=== PATIENT | female | born 1945 | race American Indian/Alaskan Native ===

== ENCOUNTER 2017-05-06 18:11 | Emergency (ER) | payer MEDICARE ==
[2017-05-06 18:20] VITALS: BP 132/81
[2017-05-06] MEDS ORDERED: PROVENTIL IH ONE (19:27)
[2017-05-06] MEDS ORDERED: ATROVENT IH ONE (19:28)
--- NOTE | 2017-05-06 19:45 | Emergency Department Report ---
HPI - General Chief Complaint: Upper Respiratory Infection Time Seen by Provider: 05/06/17 19:41 - HPI HPI: Patient with cough, congestion, wheezing, for the past 2 weeks worse today. Patient was a history of COPD he has been compliant with medication patient has had similar symptoms in the past where she had bronchitis. She said it was helped with the albuterol nebulizers, and an antibiotic. No chest pain no shortness of breath. ED Past Medical Hx - Past Medical History Previous Medical History?: Yes Hx COPD: Yes - Surgical History Past Surgical History?: No - Medications Home Medications: Home Medications Medication Instructions Recorded Confirmed Last Taken Type ALBUTEROL Inhaler [Proair] 2 puff IH QID PRN 05/06/17 05/06/17 Unknown History ALBUTEROL NEB's [Proventil 0.083% 2.5 mg IH TID 15 Days #1 pkg NS 05/06/17 Unknown Rx NEBS] Levofloxacin [Levaquin] 750 mg PO QDAY #7 tablet 05/06/17 Unknown Rx Prednisone [predniSONE 5 mg (6-Day 5 mg PO .TAPER #1 tab.ds.pk 05/06/17 Unknown Rx Pack, 21 Tabs)] ED Review of Systems ROS: Stated complaint: FLU Other details as noted in HPI Comment: All other systems reviewed and negative ENT: throat pain Respiratory: cough, wheezing Physical Exam - Physical Exam Vital Signs: Vital Signs 05/06/17 18:15 Temperature 98.4 F Pulse Rate 97 H Respiratory 18 Rate Blood Pressure 132/81 O2 Sat by Pulse 95 Oximetry Physical Exam: Gen. alert and oriented 3 in no distress Head atraumatic normocephalic Eyes PERR LA EOMI Chest regular rate and rhythm normal S1-S2 lungs mild expiratory wheezing Abdomen soft nondistended Back no point tenderness paravertebral tenderness Neuro no focal deficit. Psych normal mood. ED Course Vital Signs 05/06/17 18:15 Temperature 98.4 F Pulse Rate 97 H Respiratory 18 Rate Blood Pressure 132/81 O2 Sat by Pulse 95 Oximetry ED Medical Decision Making - Lab Data Result diagrams: 05/06/17 19:42 05/06/17 19:42 Critical care attestation.: If time is entered above; I have spent that time in minutes in the direct care of this critically ill patient, excluding procedure time. ED Disposition Clinical Impression: Acute bronchitis Qualifiers: Bronchitis organism: other organism Qualified Code(s): J20.8 - Acute bronchitis due to other specified organisms Disposition: DC-01 TO HOME OR SELFCARE Is pt being admited?: No Does the pt Need Aspirin: No Condition: Stable Instructions: Acute Bronchitis (ED) Prescriptions: ALBUTEROL NEB's [Proventil 0.083% NEBS] 2.5 mg IH TID 15 Days #1 pkg NS Levofloxacin [Levaquin] 750 mg PO QDAY #7 tablet Prednisone [predniSONE 5 mg (6-Day Pack, 21 Tabs)] 5 mg PO .TAPER #1 tab.ds.pk
[2017-05-06 19:54] LABS: Hematocrit 40.1 % (30.3-42.9); Hemoglobin 12.9 gm/dl (10.1-14.3); Mean Corpuscular HGB Conc 32 % (30-34); Mean Corpuscular Hemoglobin 30 pg (28-32); Mean Corpuscular Volume 94 fl (79-97); Platelet Count 160 K/mm3 (140-440); Red Blood Count 4.28 M/mm3 (3.65-5.03); Red Cell Distribution Width 14.4 % (13.2-15.2)
[2017-05-06 20:15] LABS: Alanine Aminotransferase 45 units/L (7-56); Albumin 3.3 g/dL (3.9-5); BUN/Creatinine Ratio 12; Blood Urea Nitrogen 7 mg/dL (7-17); Calcium 9.2 mg/dL (8.4-10.2); Hemolysis Index 9
[2017-05-06] MEDS ORDERED: ROBITUSSIN AC PO ONE (20:30)
[2017-05-06 21:09] LABS: Anisocytosis 1+; Basophils % (Manual) 0 % (0.0-1.8); Platelet Estimate Consistent w Auto; Total Cells Counted 100
== END 2017-05-06 20:28 | disposition home or self-care (01) ==
LOC: ED 18:11
DX: J20.8 Acute bronchitis due to other specified organisms (principal); J44.0 Chronic obstructive pulmonary disease with (acute) lower respiratory infection
CPT/HCPCS: 36415; 80053; 85007; 85025

== ENCOUNTER 2017-05-15 16:33 | Emergency (ER) | payer MEDICARE ==
[2017-05-15] MEDS ORDERED: NORCO 5/325 PO ONE (19:51)
--- NOTE | 2017-05-15 19:55 | Emergency Department Report ---
HPI - General Chief Complaint: Back Pain/Injury Time Seen by Provider: 05/15/17 19:17 - HPI HPI: Patient is a 72-year-old female who presents to ED complaining of lower back pain for the past 3 days. Patient states pain is fell on her lower bilateral back. Patient states pain also goes down her legs. Patient states that out of the past 3 days today's visit are worse. Patient states she did not fall, hit her back or have any trauma. Patient states she deserves to a lot physical activities at home that is out of the ordinary. Patient states her sister move certain ways or sit in certain ways. She was seen here 2-3 days ago and diagnosed with bronchitis but was not given any pain medications she is still coughing. She denies fever assess chills/abdominal pain / chest pain/shortness of breath/calf tenderness ED Past Medical Hx - Past Medical History Hx COPD: Yes - Surgical History Additional Surgical History: brain aneurysm - Social History Smoking Status: Former Smoker Substance Use Type: None - Medications Home Medications: Home Medications Medication Instructions Recorded Confirmed Last Taken Type ALBUTEROL Inhaler [Proair] 2 puff IH QID PRN 05/06/17 05/06/17 Unknown History ALBUTEROL NEB's [Proventil 0.083% 2.5 mg IH TID 15 Days #1 pkg NS 05/06/17 Unknown Rx NEBS] Levofloxacin [Levaquin] 750 mg PO QDAY #7 tablet 05/06/17 Unknown Rx Prednisone [predniSONE 5 mg (6-Day 5 mg PO .TAPER #1 tab.ds.pk 05/06/17 Unknown Rx Pack, 21 Tabs)] Acetamin/Codeine 120-12Mg/5 ml 5 ml PO TID PRN #60 ml 05/15/17 Unknown Rx [Tylenol/Codeine] Benzonatate [Tessalon Perles] 100 mg PO Q8HR #24 capsule 05/15/[address] [Rodrigo Diaz] 75 mg PO BID #40 tablet 05/15/17 Unknown Rx traMADol [Ultram] 50 mg PO Q6HR PRN #20 tablet 05/15/17 Unknown Rx ED Review of Systems ROS: Stated complaint: LOWER BACK PAIN Other details as noted in HPI Physical Exam - Physical Exam Vital Signs: Vital Signs 05/15/17 16:51 Temperature 98.7 F Pulse Rate 86 Respiratory 15 Rate Blood Pressure 122/68 O2 Sat by Pulse 98 Oximetry Physical Exam: GENERAL: Alert and oriented x3, no apparent distress,in hospital wheel chair, atraumatic. Able to get up and walk HEAD: Head is normocephalic and a-traumatic. NECK: Supple. Non edematous, No carotid bruits. No lymphadenopathy or thyromegaly. No C-spine tenderness LUNGS: Symetrical with respiration, No wheezing, no rales or crackles, CTAB. HEART: S1, S2 present, regular rate and rhythm without murmur, no rubs, no gallops. Non tender to palpation BACK: Full range of motion, no spinal tenderness, nontender to palpation. EXTREMITIES/MUSCULOSKELETAL: No cyanosis, clubbing, rash, lesions or edema. Full ROM bilaterally. UE/LE Pulses 2+ bilaterally. LE and UE 5+ strength bilaterally, straight leg raise negative bilaterally, Homans sign negative, no calf tenderness bilaterally NEUROLOGIC: The patient is cooperative with no focal neurologic deficits. . Normal speech. Normal sensation in bilateral upper and lower extremities, No loss of sensation, SKIN: Warm and dry, No lesions, No ulceration or induration present. normal exam ED Course Vital Signs 05/15/17 16:51 Temperature 98.7 F Pulse Rate 86 Respiratory 15 Rate Blood Pressure 122/68 O2 Sat by Pulse 98 Oximetry ED Medical Decision Making - Medical Decision Making 72-year-old female presents to ED with myalgia ED course: Patient received 1 tablet of Pomerene 5/325 Vital signs are normal patient is in no acute distress Discussed with patient follow-up with primary care physician. Also discussed the patient to follow-up with orthopedic as I will refer her. Neurologist referral also given for management of scaitica Discussed the patient and take medications as prescribed. Patient has no neurological deficit. Patient is alert and oriented 3 and understands all instructions given. Discussed drowsiness effect of Ultram makes her drowsy and not to operate machinery while taking this medication Critical care attestation.: If time is entered above; I have spent that time in minutes in the direct care of this critically ill patient, excluding procedure time. ED Disposition Clinical Impression: Lumbar pain with radiation down both legs, Strain of muscle, fascia and tendon of lower back, initial encounter Disposition: TO HOME OR SELFCARE Is pt being admited?: No Does the pt Need Aspirin: No Condition: Stable Instructions: Low Back Strain (ED), Lumbar Radiculopathy (ED), Chronic Back Pain (ED) Additional Instructions: Make sure to follow up with the primary care physician and orthopedic as discussed. Take all your medications as you've been prescribed. If you have any worsening symptoms or develop new symptoms please return to ED immediately. Prescriptions: Acetamin/Codeine 120-12Mg/5 ml [Tylenol/Codeine] 5 ml PO TID PRN #60 ml PRN Reason: Pain Benzonatate [Tessalon Perles] 100 mg PO Q8HR #[address] [Voltaren Dr] 75 mg PO BID #40 tablet traMADol [Ultram] 50 mg PO Q6HR PRN #20 tablet PRN Reason: Pain Referrals: ALEJANDRO GIBSON MD [Primary Care Provider] - 3-5 Days TYLER TELLEZ MD [Staff Physician] - 3-5 Days ELAINE CALZADA MD [Staff Physician] - 3-5 Days Forms: Accompanied Note Time of Disposition: 20:02
[2017-05-15 21:32] VITALS: BP 123/63
== END 2017-05-15 20:24 | disposition home or self-care (01) ==
LOC: ED 16:33
DX: S39.012A Strain of muscle, fascia and tendon of lower back, initial encounter (principal); J44.9 Chronic obstructive pulmonary disease, unspecified; Z87.891 Personal history of nicotine dependence; X58.XXXA Exposure to other specified factors, initial encounter; Y93.89 Activity, other specified; Y99.8 Other external cause status; Y92.89 Other specified places as the place of occurrence of the external cause
CPT/HCPCS: 99282

== ENCOUNTER 2017-07-30 12:21 | Outpatient (CLI) | payer MEDICARE ==
--- NOTE | 2017-07-30 13:28 | XRay Report ---
Lumbar spine 4 views: History: Low back pain/age related osteoporosis. Findings: There is osteopenia. Normal height of vertebral bodies and intervertebral disc. Sclerotic articular surfaces with peripheral osteophyte. Calcified abdominal aorta without aneurysm. No fracture. Impression: Early degenerative changes spine.
--- NOTE | 2017-07-30 13:30 | XRay Report ---
Bilateral ankle: History: Age related osteoporosis without aren't pathological fracture. Findings: There is generalized osteopenia. Soft tissue swelling bilaterally at the ankle. No fracture dislocation or periosteal or lytic lesion. Early arthritic changes in the ankle cannot be excluded. Impression: There is osteopenia with soft tissue swelling. Early arthritic changes of the ankles cannot be excluded.
== END 2017-07-30 12:22 | disposition home or self-care (01) ==
LOC: XRAY 12:21
PROVIDERS: ATTEND Nurse Practitioner
DX: M19.072 Primary osteoarthritis, left ankle and foot (principal); M19.071 Primary osteoarthritis, right ankle and foot; M47.896 Other spondylosis, lumbar region; M81.0 Age-related osteoporosis without current pathological fracture; M85.88 Other specified disorders of bone density and structure, other site; I70.0 Atherosclerosis of aorta; Z87.891 Personal history of nicotine dependence
CPT/HCPCS: 72110

== ENCOUNTER 2017-09-07 11:35 | Outpatient (CLI) | payer MEDICARE ==
[2017-09-07 12:17] LABS: Blood Urea Nitrogen 15 mg/dL (7-17)
--- NOTE | 2017-09-07 13:24 | Cat Scan Report ---
CT ABDOMEN AND PELVIS WITH CONTRAST INDICATION: Abnormal results of liver function studies. COMPARISON: None similar. FINDINGS: Abdomen and pelvis CT performed following intravenous administration of 100 cc of Omnipaque 300. LUNG BASES: Slight left basilar scarring and approximately 2.3 cm pneumatocele as on axial image 14, series 2. Few left lower lobe calcified granulomas, the largest 0.8 cm, axial image 13. Nonspecific distal esophageal wall prominence/thickening, not excluded for gastroesophageal reflux and/or hiatal hernia, amongst others. ABDOMEN: Numerous splenic and hepatic calcified granulomas. As on axial series 2, images 35-48, an approximately 2.5 x 2.7 cm left paramidline hypodense left hepatic lobe hypodense lesion noted anteriorly, not clearly a simple cyst. Though precontrast images not available, its portal venous and delayed phase attenuations are 58 and 48 HU respectively. Another subtle indeterminate 0.7 cm left hepatic lobe hypodensity also questioned more superiorly as on axial image 29. A 0.5 cm left hepatic lobe hypodensity anteriorly also seen slightly right paramidline as on axial image 47, series 2. Patent veins. Cirrhotic hepatic contour. Slight central intrahepatic biliary prominence noted with CBD caliber at the nimisha hepatis approximately 0.9 cm, axial image 52. Multiple, at least 3 peripherally calcified gallstones noted, the largest 2.3 cm, axial image 69. Pancreas, adrenals, IVC and the kidneys within normal limits. Approximately 1.2 cm left lower renal cortical cyst, axial image 64, series 2. Nonaneurysmal abdominal aorta with few atherosclerotic calcifications. No effusion or size significant adenopathy. Nonopacified GI tract valuation limited, though grossly nonobstructive. Normal appendix. Mild colonic stool. PELVIS: Approximately 1.7 cm partly calcified fibroid, as image 131. Urinary bladder and the rectosigmoid within normal limits. No free fluid or significant adenopathy. Demineralized bones with few degenerative changes along the spine and greatest mid to lower lumbar facet arthropathy with few small erosions. Mild hip degenerative changes also noted. CONCLUSION: 1. Approximately 2.7 cm left hepatic lobe mass(es) lesion that is primarily concerning for hepatocellular carcinoma in light of provided history in this patient with underlying cirrhosis. Liver mass protocol MRI with contrast would help further characterize. Direct comparison with similar prior imaging would also be very helpful, if available. This lesion would also be amenable to percutaneous CT guided biopsy, if warranted. 2. Various other findings as cholelithiasis, small left renal cyst, small fibroid and old healed granulomatous disease, amongst others, as described. Thank you for the opportunity to participate in this patient's care.
== END 2017-09-07 11:36 | disposition home or self-care (01) ==
LOC: CT 11:35
PROVIDERS: ATTEND Internal Medicine
DX: N28.1 Cyst of kidney, acquired (principal); K76.89 Other specified diseases of liver; M47.896 Other spondylosis, lumbar region; K80.20 Calculus of gallbladder without cholecystitis without obstruction; D25.9 Leiomyoma of uterus, unspecified; M16.9 Osteoarthritis of hip, unspecified; J44.9 Chronic obstructive pulmonary disease, unspecified; Z87.891 Personal history of nicotine dependence
CPT/HCPCS: 36415; 74177; 82565; 84520; Q9967

== ENCOUNTER 2017-10-08 16:34 | Outpatient (CLI) | payer MEDICARE ==
[2017-10-08 17:09] LABS: Blood Urea Nitrogen 12 mg/dL (7-17)
--- NOTE | 2017-10-08 22:14 | Magnetic Resonance Report ---
FINAL REPORT EXAM: MR ABDOMEN WO/W CON HISTORY: EVALUATION OF THE LIVER TECHNIQUE: MRI was performed of the abdomen using the following pulse sequences: Axial: 2D FIESTA, dual echo, Lava pre and multiphase post gadolinium administration Coronal: 2D FIESTA, T1 FS PGR PRIORS: No comparison exams provided FINDINGS: There is a 3.5 cm mass in the lateral segment of the left lobe of the liver. The mass is slightly hypointense on T2 weighted pulse sequences. On the dual echo cm is there is signal dropout on the out of phase images. On the early contrast enhanced sequences there is diffuse homogeneous enhancement of the mass with subsequent washout and residual capsular enhancement. There are several small cysts in the liver in the gallbladder fossa. There is slight relative enlargement of the left lobe of the liver. Are 2 small cysts in the left lobe of the liver. There are multiple large stones in the gallbladder. There is no gallbladder wall thickening or pericholecystic fluid. There is a 1 cm exophytic cyst arising from the left kidney. Otherwise, the kidneys appear normal. The pancreatic duct is mildly dilated in the body and head. Otherwise, the pancreas appears normal. The spleen appears normal. The abdominal aorta is non aneurysmal. The bones are unremarkable. IMPRESSION: 1. Left liver mass is concerning for malignancy (hepatocellular carcinoma), based on the signal characteristics and enhancement pattern. Correlation with CT and ultrasound is recommended. The appearance is not typical for a hemangioma or focal fatty infiltration. If there is a history of malignancy, this could represent a solitary metastatic lesion. 2. Multiple large stones in the gallbladder
== END 2017-10-08 16:35 | disposition home or self-care (01) ==
LOC: MRI 16:34
PROVIDERS: ATTEND Nurse Practitioner
DX: C22.0 Liver cell carcinoma (principal); R16.0 Hepatomegaly, not elsewhere classified; K80.20 Calculus of gallbladder without cholecystitis without obstruction; J44.9 Chronic obstructive pulmonary disease, unspecified; Z87.891 Personal history of nicotine dependence
CPT/HCPCS: 36415; 74183; 82565; 84520; A9577

== ENCOUNTER 2018-10-22 10:52 | Outpatient (CLI) | payer MEDICARE ==
--- NOTE | 2018-10-22 23:58 | Magnetic Resonance Report ---
MRI right shoulder without contrast INDICATION: M75.100 UNSPECIFIED ROTATOR CUFF TEAR OR RUPTURE OF UNSPECIFIED S. COMPARISON: Right shoulder radiographs from 07/21/2018 FINDINGS: There is moderate acromioclavicular and mild glenohumeral degenerative arthrosis. No acute osseous abnormality identified. There is abnormal thickening and intermediate fluid signal within the rotator cuff tendons, especiall y the supraspinatus. There is small amount of overlying subacromial/subdeltoid bursal fluid. No discr ete tear identified. There is circumferential labral fraying with degenerative tearing most notably seen posteriorly. The biceps tendon is in contact with fluid along the bicipital groove which may reflect tenosynovitis since no significant joint effusion is present. IMPRESSION: 1. DJD with rotator cuff tendinosis and mild subacromial/subdeltoid bursitis. 2. Circumferential fraying of the labrum with degenerative tearing along the posterior labrum. 3. Biceps tenosynovitis. Signer Name: Higinio Canada MD Signed: 10/22/2018 11:53 PM Workstation Name: [id number]
== END 2018-10-22 10:53 | disposition home or self-care (01) ==
LOC: MRI 10:52
PROVIDERS: ATTEND Internal Medicine
DX: M19.011 Primary osteoarthritis, right shoulder (principal); M75.21 Bicipital tendinitis, right shoulder; J44.9 Chronic obstructive pulmonary disease, unspecified

== ENCOUNTER 2018-10-29 11:59 | Outpatient (CLI) | payer MEDICARE ==
--- NOTE | 2018-10-29 12:52 | XRay Report ---
LEFT ANKLE, 3 VIEWS INDICATION: M25.572 PAIN IN LEFT ANKLE JOINTS OF LEFT FOOT. COMPARISON: None. IMPRESSION: Borderline to mild osteopenia is evident. No acute osseous findings or joint pathology i s identified. There is mild diffuse soft tissue swelling or edema. Signer Name: Dl Ag Jr, MD Signed: 10/29/2018 12:47 PM Workstation Name: [id number]
== END 2018-10-29 12:00 | disposition home or self-care (01) ==
LOC: XRAY 11:59
PROVIDERS: ATTEND Internal Medicine
DX: M25.572 Pain in left ankle and joints of left foot (principal); J44.9 Chronic obstructive pulmonary disease, unspecified

== ENCOUNTER 2018-11-11 09:15 | Outpatient (CLI) | payer MEDICARE ==
[2018-11-11 10:12] LABS: Alanine Aminotransferase 51 units/L (7-56); Albumin 3.7 g/dL (3.9-5); BUN/Creatinine Ratio 20; Blood Urea Nitrogen 12 mg/dL (7-17); Calcium 9.5 mg/dL (8.4-10.2); Hemolysis Index 1; Uric Acid 3.6 mg/dL (3.5-7.6)
== END 2018-11-11 09:16 | disposition home or self-care (01) ==
LOC: LAB 09:15
PROVIDERS: ATTEND Internal Medicine
DX: M10.9 Gout, unspecified (principal); J44.9 Chronic obstructive pulmonary disease, unspecified; Z87.891 Personal history of nicotine dependence
CPT/HCPCS: 36415; 80053; 84550

== ENCOUNTER 2018-12-23 06:59 | Day surgery (SDC) | payer MEDICARE, OTHER ==
[2018-12-23] MEDS ORDERED: LIDOCAINE (1%) 10 MG/1 ML VIAL 20 ML MDV ONE (07:05)
[2018-12-23] MEDS ORDERED: BUPIVACAINE/PF (0.5%) 5 MG/1 ML 30 ML VIAL INFILTRATI ONE ×2 (07:05→08:28)
[2018-12-23 07:32] VITALS: BP 137/72
[2018-12-23] MEDS ORDERED: LIDOCAINE (1%) 10 MG/1 ML VIAL 20 ML MDV INFILTRATI ONE (08:28)
--- NOTE | 2018-12-23 09:01 | Procedure Note ---
Date of procedure: 12/23/18 Pre-op diagnosis: right shoulder pain Post-op diagnosis: same Procedure: Suprascapular, axillary and lateral pectoral nerve blocks right shoulder Procedure The patient was brought to the operating room from observation room She was instructed to lie prone on the OR table, the posterior and lateral aspect of the shoulder was prepped and draped in the usual sterile manner a timeout procedure was done to identify the patient and the correct operative site. Using C-arm fluoroscopy the glenoid rim was visualized using lidocaine for local anesthesia a spinal needle was introduced and directed towards the superior and middle portions of the glenoid rim was done via C-arm visualization upon impacting the bony rim of humerus of the glenoid after cement Marcaine was injected along the superior and middle portions of the glenoid and the spinal needle was then removed and the greater tuberosity was seen in the proximal on the proximal humerus again localizing this level. This area lidocaine was injected into the skin this was followed by advancement of the spinal needle into the correct position just touching bone laterally next the stylette was removed and Marcaine was injected at this location as well next she was requested to lie supine she was then reprepped and draped the C-arm was brought in and the coracoid process was localized area over this structure was then and anesthetized with lidocaine followed by injection with Marcaine, the spinal needle was removed and the skin was cleansed with saline solution a small Band-Aid was then applied. The patient tolerated the procedure there were no complications she was taken to observation and will be discharged to home Anesthesia: local Anesthesia: local Surgeon: TYLER TELLEZ Estimated blood loss: minimal Pathology: none Condition: stable Disposition: observation
--- NOTE | 2018-12-23 11:39 | XRay Report ---
RIGHT SHOULDER, 3 VIEWS INDICATION: RT SHOULDER PAIN //SP NERVE BLOCK. COMPARISON: None. IMPRESSION: 1 minute 38 seconds of fluoroscopy time was provided by radiology during right shoulder nerve block by Dr. Zepeda. 3 fluoroscopic images of the right shoulder are presented demonstrating n eedle placement for nerve block. There is no evidence for fracture, dislocation or ligamentous injury . Mild osteoarthritic changes are noted. Signer Name: Dl Ag Jr, MD Signed: 12/23/2018 11:34 AM Workstation Name: [id number]
== END 2018-12-23 09:06 | disposition home or self-care (01) ==
LOC: OR 06:59
PROVIDERS: ATTEND Orthopaedic Surgery
DX: M25.511 Pain in right shoulder (principal); E78.00 Pure hypercholesterolemia, unspecified; I10 Essential (primary) hypertension; J44.9 Chronic obstructive pulmonary disease, unspecified; M19.90 Unspecified osteoarthritis, unspecified site; Z85.89 Personal history of malignant neoplasm of other organs and systems; Z98.891 History of uterine scar from previous surgery; Z98.890 Other specified postprocedural states; Z79.899 Other long term (current) drug therapy; Z87.891 Personal history of nicotine dependence; Z98.49 Cataract extraction status, unspecified eye

== ENCOUNTER 2019-01-20 06:14 | Day surgery (SDC) | payer OTHER ==
[2019-01-20] MEDS ORDERED: methylPREDNISolone ACETATE 40 MG/1 ML INJ ONE (06:37)
[2019-01-20] MEDS ORDERED: BUPIVACAINE/PF (0.5%) 5 MG/1 ML 30 ML VIAL INFILTRATI ONE ×2 (06:38→09:26)
[2019-01-20] MEDS ORDERED: LIDOCAINE (1%) 10 MG/1 ML VIAL 20 ML MDV ONE (06:38)
[2019-01-20] MEDS ORDERED: ceFAZolin/STERILE WATER 2 GM/20 ML SYRINGE IV NR (07:00)
[2019-01-20] MEDS ORDERED: LACTATED RINGERS 1,000 ML IV SCH (07:00)
[2019-01-20] MEDS ORDERED: LACTATED RINGERS 1,000 ML ONE (07:21)
--- NOTE | 2019-01-20 07:50 | Anesthesia Day of Surgery ---
Anesthesia Day of Surgery - Day of Surgery Patient Examined: Yes Patient H&P Reviewed: Yes Patient is NPO: Yes
--- NOTE | 2019-01-20 07:50 | Anesthesia Consultation ---
Anesthesia Consult and Med Hx Date of service: 01/20/19 - Airway Anesthetic Teeth Evaluation: Poor ROM Head & Neck: Adequate Mental/Hyoid Distance: Adequate Mallampati Class: Class II Intubation Access Assessment: Good - Pulmonary Exam CTA: Yes - Cardiac Exam Cardiac Exam: RRR - Pre-Operative Health Status ASA Pre-Surgery Classification: ASA3 Proposed Anesthetic Plan: MAC - Pulmonary Hx Smoking: Yes (QUIT 2018) COPD: Yes (DAILY AND PRN INHALERS) Hx Sleep Apnea: No (YESENIA PRE SCREEN LOW RISK) - Cardiovascular System Hx Hypertension: Yes Hx Heart Attack/AMI: No - Central Nervous System Hx Back Pain: Yes Hx Psychiatric Problems: No - Endocrine Hx Cirrhosis: (LIVER CA-DX APR 2018,HAD CHEMO-GONE NOW) - Hematic Hx Anemia: No - Other Systems Hx Cancer: Yes
[2019-01-20] MEDS ORDERED: PROPOFOL 200 MG/20 ML VIAL IV ONE ×2 (08:30→09:46)
[2019-01-20] MEDS ORDERED: MIDAZOLAM 2 MG/2 ML INJ ONE (08:30)
[2019-01-20] MEDS ORDERED: fentaNYL 100 MCG/2 ML INJ ONE (08:30)
[2019-01-20] MEDS ORDERED: LIDOCAINE MPF (2%) 20 MG/1 ML VIAL 5 ML ONE (08:31)
[2019-01-20] MEDS ORDERED: MIDAZOLAM 2 MG/2 ML INJ IV NR (09:00)
[2019-01-20] MEDS ORDERED: methylPREDNISolone ACETATE 40 MG/1 ML INJ INTRA-ARTI ONE (09:26)
--- NOTE | 2019-01-20 10:30 | Procedure Note ---
Date of procedure: 01/20/19 Pre-op diagnosis: right shoulder pain Post-op diagnosis: same Procedure: Radiofrequency ablation right axillary suprascapular and lateral pectoral nerves Procedure The patient was brought to the OR placed on the OR table in prone position the right shoulder was placed on neutral position with the hand supinated. A timeout procedure was done to identify the patient and the correct operative site. The C-arm fluoroscope was positioned using the glenohumeral joint as a reference point. The area along the glenoid rim was identified with the spinal the scapular being the midpoint the probe inserted after injecting the skin with lidocaine both the superior and inferior points were isolated followed by testing for motor function once no visible or palpable muscle twitch were seen the radiofrequency generator started and a temperature of 60C was obtained for total of 2-1/2 minutes at each location following this a Marcaine Depo-Medrol mixture was injected at both locations. The probe was removed and repositioned again using C-arm fluoroscope to the area around the greater tuberosity following this the probe was inserted nerve function checked to ensure that we were not close to the motor branch of the axillary nerve was dismissed on the generator was again used to create the temperature of 60C at both locations again and Marcaine Depo-Medrol mixture was injected. She was turned supine on or table the right shoulder was then prepped and draped in a routine sterile manner, using C-arm visualization the core cord process was visualized The skin over this area was anesthetized with 1% lidocaine followed by introduction of the probe into this area. Again using scissors to check for motor function grossly followed by turning on the radiofrequency generator and ablating this nerve properly. She tolerated the procedure there were no complications she was sent to postanesthesia recovery Anesthesia: MAC Surgeon: TYLER TELLEZ Estimated blood loss: minimal Pathology: none Condition: stable Disposition: PACU
--- NOTE | 2019-01-20 10:52 | XRay Report ---
RIGHT SHOULDER, ONE VIEW INDICATION: RT SHOULDER PAIN, //RF ABLATION. COMPARISON: None. IMPRESSION: 50 seconds of fluoroscopy time was provided by radiology during radiofrequency ablation procedure. 4 fluoroscopic images are presented demonstrating needle placement near the anterior gleno id and lateral humeral head. Mild arthritic changes are noted at the shoulder. No fracture, ligament ous injury or bone lesion. Please correlate with the procedural report by Dr. Zepeda as needed. Signer Name: Dl Ag Jr, MD Signed: 01/20/2019 10:48 AM Workstation Name: [id number]
[2019-01-20] MEDS ORDERED: SODIUM CHLORIDE FOR INHALATION NEBU 3 ML ONE (11:08)
[2019-01-20] MEDS ORDERED: ALBUTEROL 2.5 MG/3 ML NEBU IH ONE ×2 (11:08→12:07)
[2019-01-20] MEDS ORDERED: HYDROcodone/ACETAMINOPHEN 7.5-325MG TAB PO ONE (12:02)
[2019-01-20 12:09] VITALS: BP 132/63
--- NOTE | 2019-01-20 15:03 | Post Anesthesia Evaluation ---
- Post Anesthesia Evaluation Patient Participated: Yes Airway Patent: Yes Stable Respiratory Function: Yes Nausea/Vomiting: No Temp > 96.8F: Yes Pain Manageable: Yes Adequeate Hydration: Yes Anesthesia Complications: No Block Receding Appropriately: Not Applicable Patient on Ventilator: No
== END 2019-01-20 12:41 | disposition home or self-care (01) ==
LOC: OR 06:14
PROVIDERS: ATTEND Orthopaedic Surgery
DX: M25.511 Pain in right shoulder (principal); E78.00 Pure hypercholesterolemia, unspecified; I10 Essential (primary) hypertension; J44.9 Chronic obstructive pulmonary disease, unspecified; M19.90 Unspecified osteoarthritis, unspecified site; Z79.899 Other long term (current) drug therapy; Z87.891 Personal history of nicotine dependence; Z98.49 Cataract extraction status, unspecified eye; Z98.891 History of uterine scar from previous surgery; Z85.89 Personal history of malignant neoplasm of other organs and systems; Z98.890 Other specified postprocedural states
CPT/HCPCS: 36415; 64640; 73020; 84132; A4649; J1030; J2250; J2704; J3010; J7120; J0690

== ENCOUNTER 2019-12-18 00:43 | Emergency (ER) | payer OTHER ==
[2019-12-18] MEDS ORDERED: ASPIRIN 325 MG TAB PO ONE (01:45)
[2019-12-18 02:26] LABS: Basophils % (Auto) 0.5 % (0.0-1.8); Eosinophils # (Auto) 0.1 K/mm3 (0.0-0.4); Eosinophils % (Auto) 1.6 % (0.0-4.3); Hematocrit 35.1 % (30.3-42.9); Hemoglobin 11.5 gm/dl (10.1-14.3); Lymphocytes # (Auto) 1.1 K/mm3 (1.2-5.4); Lymphocytes % (Auto) 20.4 % (13.4-35.0); Mean Corpuscular HGB Conc 33 % (30-34); Mean Corpuscular Volume 92 fl (79-97); Monocytes # (Auto) 0.6 K/mm3 (0.0-0.8); Monocytes % (Auto) 10.5 % (0.0-7.3); Platelet Count 155 K/mm3 (140-440); Red Blood Count 3.84 M/mm3 (3.65-5.03); Red Cell Distribution Width 15.6 % (13.2-15.2)
[2019-12-18 02:34] LABS: Blood Urea Nitrogen 8 mg/dL (7-17); Calcium 9.3 mg/dL (8.4-10.2); Hemolysis Index 0
[2019-12-18 02:40] LABS: BUN/Creatinine Ratio 13
--- NOTE | 2019-12-18 03:32 | XRay Report ---
CHEST 1 VIEW INDICATION: Chest Pain COMPARISON: None FINDINGS: Support devices: None Heart: Normal Lungs/Pleura: No acute pulmonary or pleural findings. IMPRESSION: 1. No acute disease. Signer Name: Eddie Basilio MD Signed: 12/18/2019 3:28 AM Workstation Name: [id number]
[2019-12-18] MEDS ORDERED: MORPHINE 4 MG/1 ML INJ IV ONE (08:19)
[2019-12-18] MEDS ORDERED: ONDANSETRON 4 MG/2 ML INJ IV ONE (08:20)
[2019-12-18] MEDS ORDERED: ALBUTEROL 2.5 MG/3 ML NEBU IH ONE (08:20)
[2019-12-18] MEDS ORDERED: methylPREDNISolone Sod Succinate 125 MG/2 ML INJ IV ONE (08:20)
[2019-12-18] MEDS ORDERED: MAGNESIUM SULFATE 2 GM/50 ML BAG IV ONE (08:20)
[2019-12-18] MEDS ORDERED: IPRATROPIUM 0.02% NEBU 2.5 ML IH ONE (08:20)
--- NOTE | 2019-12-18 09:43 | Emergency Department Report ---
ED Shortness of Breath HPI - General Chief Complaint: Chest Pain Stated Complaint: SARA/CHEST PAIN Time Seen by Provider: 12/18/19 07:26 Source: patient Mode of arrival: Ambulatory Limitations: No Limitations - History of Present Illness Initial Comments: 74-year-old female with a past medical history of arthritis, COPD currently on Symbicort and pro-air without home oxygen use, hypertension, liver cancer status post chemo with possible recurrence, and brain aneurysm presents to the hospital with complaints of shortness of breath for the last 3 days. Patient having dyspnea on exertion as well as when she tries to lie supine during sleep. While lying supine during shortness of breath episodes she has associated palpitations. Symptoms improved when sitting upright. Patient using inhaler without improvement patient has chronic intermittent lower extremity edema which is currently mild. She has a history of phlebitis of her legs in the past but denies DVT, PE, recent travel, calf tenderness, or unilateral leg edema. Patient also complains of aching pain across her right and left chest for 1 week. Pain is worse with palpation. Patient denies cough or fever but complains of postnasal drip and runny nose. PMD Dr. Goddard - Related Data Home Medications Medication Instructions Recorded Confirmed Last Taken Budesonide/Formoterol Fumarate 2 puff IH BID 12/13/18 01/20/19 01/20/19 06:00 [Symbicort 160-4.5 Mcg Inhaler] HYDROcodone/APAP 5-325 1 tab PO PRN PRN 12/13/18 01/12/19 01/19/19 15:00 Hydrochlorothiazide 25 mg PO DAILY 12/13/18 01/12/19 01/19/19 15:00 Metoprolol 50 mg PO DAILY 12/13/18 01/12/19 01/19/19 15:00 amLODIPine 5 mg PO DAILY 12/13/18 01/12/19 01/19/19 15:00 Previous Rx's Medication Instructions Recorded Last Taken Type traMADoL [Ultram] 50 mg PO Q6HR PRN #20 tablet 05/15/17 01/19/19 15:00 Rx HYDROcodone/APAP 7.5-325 [Curran 1 each PO Q6HR PRN #20 tablet 01/20/19 Unknown Rx 7.5-325 mg TAB] ALBUTEROL NEB's [Proventil 0.083% 1 dose IH Q4HR PRN #30 12/18/19 Unknown Rx NEBS] Levalbuterol Tartrate 2 puff IH Q4HR PRN #1 hfa.aer.ad 12/18/19 Unknown Rx [Levalbuterol Tartrate Hfa] Prednisone [predniSONE 10 mg 10 mg PO .TAPER #1 tab.ds.pk 12/18/19 Unknown Rx (6-Day Pack, 21 Tabs)] traMADoL [Ultram 50 MG tab] 50 mg PO Q6HR PRN #20 tablet 12/18/19 Unknown Rx Allergies Allergy/AdvReac Type Severity Reaction Status Date / Time No Known Allergies Allergy Verified 12/14/18 11:13 ED Review of Systems ROS: Stated complaint: SARA/CHEST PAIN Other details as noted in HPI Comment: All other systems reviewed and negative ED Past Medical Hx - Past Medical History Hx Hypertension: Yes Hx Heart Attack/AMI: No Hx Arthritis: Yes (LEFT SHOULDER & PIETRO. KNEES) Hx COPD: Yes (DAILY AND PRN INHALERS) Hx Tuberculosis: No Hx HIV: No - Surgical History Past Surgical History?: Yes Additional Surgical History: brain aneurysm - Social History Smoking Status: Former Smoker Substance Use Type: None - Medications Home Medications: Home Medications Medication Instructions Recorded Confirmed Last Taken Type traMADoL [Ultram] 50 mg PO Q6HR PRN #20 tablet 05/15/17 01/12/19 01/19/19 15:00 Rx Budesonide/Formoterol Fumarate 2 puff IH BID 12/13/18 01/20/19 01/20/19 06:00 History [Symbicort 160-4.5 Mcg Inhaler] HYDROcodone/APAP 5-325 1 tab PO PRN PRN 12/13/18 01/12/19 01/19/19 15:00 History Hydrochlorothiazide 25 mg PO DAILY 12/13/18 01/12/19 01/19/19 15:00 History Metoprolol 50 mg PO DAILY 12/13/18 01/12/19 01/19/19 15:00 History amLODIPine 5 mg PO DAILY 12/13/18 01/12/19 01/19/19 15:00 History HYDROcodone/APAP 7.5-325 [Curran 1 each PO Q6HR PRN #20 tablet 01/20/19 Unknown Rx 7.5-325 mg TAB] ALBUTEROL NEB's [Proventil 0.083% 1 dose IH Q4HR PRN #30 12/18/19 Unknown Rx NEBS] Levalbuterol Tartrate 2 puff IH Q4HR PRN #1 hfa.aer.ad 12/18/19 Unknown Rx [Levalbuterol Tartrate Hfa] Prednisone [predniSONE 10 mg 10 mg PO .TAPER #1 tab.ds.pk 12/18/19 Unknown Rx (6-Day Pack, 21 Tabs)] traMADoL [Ultram 50 MG tab] 50 mg PO Q6HR PRN #20 tablet 12/18/19 Unknown Rx ED Physical Exam - General Limitations: No Limitations - Other Other exam information: General: No acute distress Head: Atraumatic Eyes: normal appearance ENT: Moist mucous membranes Neck: Normal appearance, no midline tenderness Chest: No tachypnea accessory muscle use, and expiratory wheeze. Reproducible anterior chest wall tenderness CV: Regular rate and rhythm Abdomen: Soft, normal bowel sounds, nontender, nondistended, no rebound or guarding Back: Normal inspection Extremity: Trace pedal edema, no calf tenderness Neuro: Alert O x 3, no facial asymmetry, speech clear, no gross motor sensory deficit Psych: Appropriate behavior Skin: No rash ED Course Vital Signs 12/18/19 12/18/19 12/18/19 01:48 07:21 07:28 Temperature 98.7 F Pulse Rate 79 69 Pulse Rate [ Anterior Bilateral Throughout] Respiratory 18 16 Rate Respiratory Rate [Anterior Bilateral Throughout] Blood Pressure 149/58 Blood Pressure 181/97 [Left] O2 Sat by Pulse 97 97 100 Oximetry 12/18/19 12/18/19 12/18/19 07:30 07:45 08:00 Temperature Pulse Rate 66 70 70 Pulse Rate [ Anterior Bilateral Throughout] Respiratory 18 14 17 Rate Respiratory Rate [Anterior Bilateral Throughout] Blood Pressure 149/70 167/79 151/71 Blood Pressure [Left] O2 Sat by Pulse 98 98 Oximetry 12/18/19 12/18/19 12/18/19 08:15 08:30 08:46 Temperature Pulse Rate 81 73 69 Pulse Rate [ Anterior Bilateral Throughout] Respiratory 30 H 27 H 15 Rate Respiratory Rate [Anterior Bilateral Throughout] Blood Pressure 162/78 162/78 162/78 Blood Pressure [Left] O2 Sat by Pulse 97 98 100 Oximetry 10/07/0312/18/19 12/18/19 09:00 09:16 09:30 Temperature Pulse Rate 75 70 71 Pulse Rate [ Anterior Bilateral Throughout] Respiratory 36 H 17 27 H Rate Respiratory Rate [Anterior Bilateral Throughout] Blood Pressure 162/78 162/78 162/78 Blood Pressure [Left] O2 Sat by Pulse 100 100 100 Oximetry 12/18/19 12/18/19 12/18/19 09:36 09:46 10:00 Temperature Pulse Rate 73 73 Pulse Rate [ 78 Anterior Bilateral Throughout] Respiratory 15 18 Rate Respiratory 20 Rate [Anterior Bilateral Throughout] Blood Pressure 162/78 162/78 Blood Pressure [Left] O2 Sat by Pulse 96 93 Oximetry 12/18/19 10:16 Temperature Pulse Rate 76 Pulse Rate [ Anterior Bilateral Throughout] Respiratory 18 Rate Respiratory Rate [Anterior Bilateral Throughout] Blood Pressure 162/78 Blood Pressure [Left] O2 Sat by Pulse 91 Oximetry ED Medical Decision Making - Lab Data Result diagrams: 12/18/19 01:53 12/18/19 01:53 Lab Results 12/18/19 12/18/19 12/18/19 Range/Units 01:53 01:53 06:56 WBC 5.4 (4.5-11.0) K/mm3 RBC 3.84 (3.65-5.03) M/mm3 Hgb 11.5 (10.1-14.3) gm/dl Hct 35.1 (30.3-42.9) % MCV 92 (79-97) fl MCH 30 (28-32) pg MCHC 33 (30-34) % RDW 15.6 H (13.2-15.2) % Plt Count 155 (140-440) K/mm3 Lymph % (Auto) 20.4 (13.4-35.0) % Hanson % (Auto) 10.5 H (0.0-7.3) % Eos % (Auto) 1.6 (0.0-4.3) % Baso % (Auto) 0.5 (0.0-1.8) % Lymph # (Auto) 1.1 L (1.2-5.4) K/mm3 Hanson # (Auto) 0.6 (0.0-0.8) K/mm3 Eos # (Auto) 0.1 (0.0-0.4) K/mm3 Baso # (Auto) 0.0 (0.0-0.1) K/mm3 Seg Neutrophils % 67.0 (40.0-70.0) % Seg Neutrophils # 3.6 (1.8-7.7) K/mm3 D-Dimer (0-234) ng/mlDDU Sodium 144 (137-145) mmol/L Potassium 3.9 (3.6-5.0) mmol/L Chloride 102.4 (98-107) mmol/L Carbon Dioxide 28 (22-30) mmol/L Anion Gap 18 mmol/L BUN 8 (7-17) mg/dL Creatinine 0.6 (0.6-1.2) mg/dL Estimated GFR > 60 ml/min BUN/Creatinine Ratio 13 % Glucose 117 H (65-100) mg/dL Calcium 9.3 (8.4-10.2) mg/dL Troponin T < 0.010 < 0.010 (0.00-0.029) ng/mL NT-Pro-B Natriuret Pep (0-900) pg/mL 12/18/19 12/18/19 12/18/19 Range/Units 06:56 08:26 10:18 WBC (4.5-11.0) K/mm3 RBC (3.65-5.03) M/mm3 Hgb (10.1-14.3) gm/dl Hct (30.3-42.9) % MCV (79-97) fl MCH (28-32) pg MCHC (30-34) % RDW (13.2-15.2) % Plt Count (140-440) K/mm3 Lymph % (Auto) (13.4-35.0) % Hanson % (Auto) (0.0-7.3) % Eos % (Auto) (0.0-4.3) % Baso % (Auto) (0.0-1.8) % Lymph # (Auto) (1.2-5.4) K/mm3 Hanson # (Auto) (0.0-0.8) K/mm3 Eos # (Auto) (0.0-0.4) K/mm3 Baso # (Auto) (0.0-0.1) K/mm3 Seg Neutrophils % (40.0-70.0) % Seg Neutrophils # (1.8-7.7) K/mm3 D-Dimer < 135.00 (0-234) ng/mlDDU Sodium (137-145) mmol/L Potassium (3.6-5.0) mmol/L Chloride (98-107) mmol/L Carbon Dioxide (22-30) mmol/L Anion Gap mmol/L BUN (7-17) mg/dL Creatinine (0.6-1.2) mg/dL Estimated GFR ml/min BUN/Creatinine Ratio % Glucose (65-100) mg/dL Calcium (8.4-10.2) mg/dL Troponin T < 0.010 (0.00-0.029) ng/mL NT-Pro-B Natriuret Pep 112.4 (0-900) pg/mL - EKG Data -: EKG Interpreted by Me (pacs) EKG shows normal: sinus rhythm, ST-T waves (Minimal diffuse ST depression without ST elevation) Rate: normal (77) - EKG Data 12/18/19 09:44 Repeat EKG performed at 8:26 PM without acute changes compared to previous one performed in the department. PACs persist. No ST elevation ME minimum decrease ST depressions which is also similar to previous EKG - Radiology Data Radiology results: report reviewed CHEST 1 VIEW INDICATION: Chest Pain COMPARISON: None FINDINGS: Support devices: None Heart: Normal Lungs/Pleura: No acute pulmonary or pleural findings. IMPRESSION: 1. No acute disease. - Medical Decision Making Patient presents to the hospital with dyspnea and exertion and intermittent wheezing as well as worsening symptoms while lying supine. She has reproducible anterior chest wall tenderness described as aching. Chest x-ray and labs are unremarkable. Wheezing noted on examination. Patient treated with bronchodilators, Solu-Medrol, and magnesium. D-dimer negative. Pulse ox remained greater than 95% during ED stay. EKG unchanged x2 , trop neg x 3. At end of treatment patient continued to complain of dyspnea and exertion therefore was offered admission. Patient declines admission at this time prefers to go home on meds. Patient encouraged to return to the ER if symptoms worsen pac's on ekg also noted Critical Care Time: No Critical care attestation.: If time is entered above; I have spent that time in minutes in the direct care of this critically ill patient, excluding procedure time. ED Disposition Clinical Impression: COPD with exacerbation, Chest wall pain Disposition: DC- TO HOME OR SELFCARE Is pt being admited?: No Does the pt Need Aspirin: No Condition: Stable Instructions: Chronic Obstructive Pulmonary Disease (ED), Chest Pain (ED) Additional Instructions: Take the medication as prescribed. Follow-up with your doctor or doctor/clinic provided. Return if symptoms worsen as indicated by your discharge instructions. Prescriptions: Levalbuterol Tartrate [Levalbuterol Tartrate Hfa] 2 puff IH Q4HR PRN #1 hfa.aer.ad PRN Reason: Wheezing Prednisone [predniSONE 10 mg (6-Day Pack, 21 Tabs)] 10 mg PO .TAPER #1 tab.ds.pk ALBUTEROL NEB's [Proventil 0.083% NEBS] 1 dose IH Q4HR PRN #30 PRN Reason: Shortness Of Breath traMADoL [Ultram 50 MG tab] 50 mg PO Q6HR PRN #20 tablet PRN Reason: Pain Referrals: HELEN GODDARD MD [Staff Physician] - 3-5 Days Time of Disposition: 11:50
[2019-12-18 10:24] VITALS: BP 162/78
== END 2019-12-18 12:36 | disposition home or self-care (01) ==
LOC: ED 00:43
DX: J44.1 Chronic obstructive pulmonary disease with (acute) exacerbation (principal); R07.89 Other chest pain; I10 Essential (primary) hypertension; M19.91 Primary osteoarthritis, unspecified site; Z87.891 Personal history of nicotine dependence; Z79.899 Other long term (current) drug therapy
CPT/HCPCS: 36415; 71045; 80048; 83880; 84484; 85025; 85379; 93005; 94640; 96365; 96375; 99284; J2270; J2405; J2930; J3475; 94644

== ENCOUNTER 2020-03-06 14:18 | Outpatient (CLI) | payer OTHER ==
--- NOTE | 2020-03-06 18:25 | Magnetic Resonance Report ---
MR cervical spine wo con INDICATION / CLINICAL INFORMATION: 75 years Female; SPONDYLOSIS W/O MYELOPATHY. TECHNIQUE: Multisequence, multiplanar images of the cervical spine were obtained. Mild motion artifact COMPARISON: None available. FINDINGS: CRANIOCERVICAL JUNCTION:No significant abnormality. ALIGNMENT: Straightening of the cervical spine seen, which may be related to patient positioning. VERTEBRAE:Grossly normal marrow signal and vertebral body height for age. VISUALIZED SPINAL CORD: No significant abnormality. INTERVERTEBRAL DISCS: Grossly normal in height and signal intensity. POVIL-CR-JBCIC ANALYSIS: C2-3: Small posterocentral disc protrusion. C3-4: Small posterocentral disc protrusion. C4-5: Small, broad-based posterocentral disc protrusion. Minimal foraminal narrowing from uncinate an d/or facet hypertrophy. C5-6: Mild to moderate disc bulge. Small left paracentral disc protrusion. There is encroachment upon the cervical cord without impingement. Moderate foraminal narrowing on the right mild the left from uncinate hypertrophy. C6-7: Right paracentral disc protrusion. There is encroachment upon the cervical cord without impinge ment. C7-T1: Mild disc bulge and small posterocentral disc protrusion. Mild facet hypertrophy. PARASPINAL SOFT TISSUES: No significant abnormality. ADDITIONAL FINDINGS: None. IMPRESSION: 1. Degenerative changes of the cervical spine as described above. Most marked findings appear to be a t C5-6. Please correlate with dermatomal distribution of patient's symptoms, if present. Signer Name: Brian Delatorre MD, III Signed: 03/06/2020 6:20 PM Workstation Name: [id number]
== END 2020-03-06 14:19 | disposition home or self-care (01) ==
LOC: MRI 14:18
PROVIDERS: ATTEND Anesthesiology
DX: M50.223 Other cervical disc displacement at C6-C7 level (principal); M47.812 Spondylosis without myelopathy or radiculopathy, cervical region
CPT/HCPCS: 72141

== ENCOUNTER 2020-06-18 16:15 | Emergency (ER) | payer MEDICARE, OTHER ==
[2020-06-18 16:22] VITALS: BP 146/73
--- NOTE | 2020-06-18 17:34 | Cat Scan Report ---
CT cervical spine wo con, CT head/brain wo con INDICATION: Trauma. TECHNIQUE: CT head and cervical spine without contrast. All CT scans at this location are performed u sing CT dose reduction for ALARA by means of automated exposure control. COMPARISON: None. FINDINGS: HEAD: Intracranial:Postoperative changes from prior right aneurysmal clipping with associated right frontal encephalomalacia. No evidence for acute territorial infarction. No intracranial hemorrhage. No extr a axial collection.. No hydrocephalus. No herniation. Sinuses: Paranasal sinuses and mastoid air cells are essentially clear. Orbits: Globes are intact Calvarium: No acute fracture. CERVICAL: Alignment: Normal alignment. Vertebrae: No fracture. Vertebral body heights are preserved. C1 and C2 are congruent. Atlantooccipi rico joint is maintained. Spondylolysis: Mild spondylosis most also C5-C6. Soft tissues: No prevertebral soft tissue thickening. Additional findings: No significant additional findings. IMPRESSION: 1. No acute intracranial abnormality. 2.No cervical spine fracture. Signer Name: Marlon Allan MD Signed: 06/18/2020 5:29 PM Workstation Name: [id number]
--- NOTE | 2020-06-18 17:50 | XRay Report ---
RIGHT SHOULDER 2 VIEWS RIGHT ELBOW 2 VIEWS RIGHT WRIST 2 VIEWS INDICATION: Right upper extremity pain after fall. COMPARISON: No priors. FINDINGS: Right shoulder: No acute, displaced fracture or dislocation is seen. Mild degenerative changes are no pranav. Right elbow: Positioning is suboptimal. Accounting for this, no acute displaced fracture or dislocati on is seen. No definite joint effusion. Right wrist: There is a mildly impacted/displaced intra-articular distal radius fracture with transve rse and longitudinal components. There is slight dorsal angulation of the distal fracture fragment. N o significant cortical offset is seen at the articular surface. No associated ulnar styloid fracture is seen. There is significant soft tissue swelling about the right wrist. No carpal fracture is seen. IMPRESSION: 1. Comminuted mildly displaced/impacted distal radius fracture as above. 2. No acute traumatic findings at the right elbow or right shoulder. Signer Name: Berny Samuel MD Signed: 06/18/2020 5:46 PM Workstation Name: [id number]
[2020-06-18] MEDS ORDERED: HYDROcodone/ACETAMINOPHEN 10-325MG TAB PO ONE (19:53)
--- NOTE | 2020-06-18 19:56 | Emergency Department Report ---
ED Fall HPI - General Chief Complaint: Fall Stated Complaint: RT WRIST INJURY /FALL Time Seen by Provider: 06/18/20 19:24 Source: patient Mode of arrival: Wheelchair - History of Present Illness Initial Comments: This is a 75-year-old female nontoxic, well nourished in appearance, no acute signs of distress presents to the ED with c/o of right wrist, elbow and shoulder pain and headache status post fall that occurred prior to arrival. Patient stated she was walking the stairs in the last 2-3 stairs had a trip and fell to the right side of the upper extremities. Patient denies any loss conscious. Patient otherwise denies any head trauma or injuries but stated has headaches. Patient denies any mid or lower back pain. Patient denies loss of consciousness, head trauma, ecchymosis, chest pain, short of breath, blurry vision, fever, chills, stiff neck, decreased range of motion, bladder or bowel instability, diaphoresis, nausea, vomiting, abdominal pain, joint pain or swelling, visual changes, chest wall tenderness, numbness or tingling sensation extremity. Patient agrees to good rectal tone with no bladder overflow. Patient is currently ambulatory with some assistance. Patient denies any EtOH or recreational drugs. Patient denies any allergies. MD Complaint: fall -: This evening Fall From: down stairs (#) (2-3) Fall Witnessed: no Place Fall Occurred: home Loss of Consciousness: none Prolonged Down Time?: no Symptoms Prior to Fall: none Location - Extremities: Right: Shoulder, Arm Severity: mild Severity scale (0 -10): 8 Quality: aching Context: tripped/slipped Associated Symptoms: denies, headache. denies: neck pain, numbness, weakness, chest paint, shortness of breath, abdominal pain, hematuria, unable to walk, lightheaded, vertigo, confusion - Related Data Home Medications Medication Instructions Recorded Confirmed Last Taken Budesonide/Formoterol Fumarate 2 puff IH BID 12/13/18 01/20/19 01/20/19 06:00 [Symbicort 160-4.5 Mcg Inhaler] HYDROcodone/APAP 5-325 1 tab PO PRN PRN 12/13/18 01/12/19 01/19/19 15:00 Hydrochlorothiazide 25 mg PO DAILY 12/13/18 01/12/19 01/19/19 15:00 Metoprolol 50 mg PO DAILY 12/13/18 01/12/19 01/19/19 15:00 amLODIPine 5 mg PO DAILY 12/13/18 01/12/19 01/19/19 15:00 Previous Rx's Medication Instructions Recorded Last Taken Type traMADoL [Ultram] 50 mg PO Q6HR PRN #20 tablet 05/15/17 01/19/19 15:00 Rx HYDROcodone/APAP 7.5-325 [[place] 1 each PO Q6HR PRN #20 tablet 01/20/19 Unknown Rx 7.5-325 mg TAB] ALBUTEROL NEB's [Proventil 0.083% 1 dose IH Q4HR PRN #30 12/18/19 Unknown Rx NEBS] Levalbuterol Tartrate 2 puff IH Q4HR PRN #1 hfa.aer.ad 12/18/19 Unknown Rx [Levalbuterol Tartrate Hfa] Prednisone [predniSONE 10 mg 10 mg PO .TAPER #1 tab.ds.pk 12/18/19 Unknown Rx (6-Day Pack, 21 Tabs)] traMADoL [Ultram 50 MG tab] 50 mg PO Q6HR PRN #20 tablet 12/18/19 Unknown Rx Naproxen 500 mg PO Q12H PRN #12 tablet 06/18/20 Unknown Rx Allergies Allergy/AdvReac Type Severity Reaction Status Date / Time No Known Allergies Allergy Verified 06/18/20 16:17 ED Review of Systems ROS: Stated complaint: RT WRIST INJURY /FALL Other details as noted in HPI Comment: All other systems reviewed and negative Constitutional: denies: chills, fever Eyes: denies: eye pain, eye discharge, vision change ENT: denies: ear pain, throat pain Respiratory: denies: cough, shortness of breath, wheezing Cardiovascular: denies: chest pain, palpitations Endocrine: no symptoms reported Gastrointestinal: denies: abdominal pain, nausea, diarrhea Genitourinary: denies: urgency, dysuria, discharge Musculoskeletal: denies: back pain, joint swelling, arthralgia Skin: denies: rash, lesions Neurological: denies: headache, weakness, paresthesias Psychiatric: denies: anxiety, depression Hematological/Lymphatic: denies: easy bleeding, easy bruising ED Past Medical Hx - Past Medical History Hx Hypertension: Yes Hx Heart Attack/AMI: No Hx Arthritis: Yes (LEFT SHOULDER & PIETRO. KNEES) Hx COPD: Yes (DAILY AND PRN INHALERS) Hx Tuberculosis: No Hx HIV: No - Surgical History Additional Surgical History: brain aneurysm - Social History Smoking Status: Never Smoker Substance Use Type: None - Medications Home Medications: Home Medications Medication Instructions Recorded Confirmed Last Taken Type traMADoL [Ultram] 50 mg PO Q6HR PRN #20 tablet 05/15/17 01/12/19 01/19/19 15:00 Rx Budesonide/Formoterol Fumarate 2 puff IH BID 12/13/18 01/20/19 01/20/19 06:00 History [Symbicort 160-4.5 Mcg Inhaler] HYDROcodone/APAP 5-325 1 tab PO PRN PRN 12/13/18 01/12/19 01/19/19 15:00 History Hydrochlorothiazide 25 mg PO DAILY 12/13/18 01/12/19 01/19/19 15:00 History Metoprolol 50 mg PO DAILY 12/13/18 01/12/19 01/19/19 15:00 History amLODIPine 5 mg PO DAILY 12/13/18 01/12/19 01/19/19 15:00 History HYDROcodone/APAP 7.5-325 [[place] 1 each PO Q6HR PRN #20 tablet 01/20/19 Unknown Rx 7.5-325 mg TAB] ALBUTEROL NEB's [Proventil 0.083% 1 dose IH Q4HR PRN #30 12/18/19 Unknown Rx NEBS] Levalbuterol Tartrate 2 puff IH Q4HR PRN #1 hfa.aer.ad 12/18/19 Unknown Rx [Levalbuterol Tartrate Hfa] Prednisone [predniSONE 10 mg 10 mg PO .TAPER #1 tab.ds.pk 12/18/19 Unknown Rx (6-Day Pack, 21 Tabs)] traMADoL [Ultram 50 MG tab] 50 mg PO Q6HR PRN #20 tablet 12/18/19 Unknown Rx Naproxen 500 mg PO Q12H PRN #12 tablet 06/18/20 Unknown Rx ED Physical Exam - General Limitations: No Limitations General appearance: alert, in no apparent distress - Head Head exam: Present: atraumatic, normocephalic - Eye Eye exam: Present: normal appearance, PERRL, EOMI - Neck Neck exam: Present: normal inspection, full ROM. Absent: tenderness, meningismus, lymphadenopathy - Respiratory Respiratory exam: Present: normal lung sounds bilaterally. Absent: respiratory distress, wheezes, rales, rhonchi, stridor, chest wall tenderness, accessory muscle use, decreased breath sounds, prolonged expiratory - Cardiovascular Cardiovascular Exam: Present: regular rate, normal rhythm, normal heart sounds. Absent: bradycardia, tachycardia, irregular rhythm, systolic murmur, diastolic murmur, rubs, gallop - GI/Abdominal GI/Abdominal exam: Present: soft, normal bowel sounds. Absent: distended, tenderness, guarding, rebound, rigid, diminished bowel sounds - Extremities Exam Extremities exam: Present: full ROM, tenderness, normal capillary refill. Absent: joint swelling - Expanded Upper Extremity Exam Right General: Present: normal inspection Shoulder Exam: Present: normal inspection, full ROM, tenderness. Absent: swelling, abrasion, laceration, ecchymosis, deformity, crepidus, dislocation, erythema, tenderness over AC joint Upper Arm exam: Present: normal inspection, full ROM. Absent: tenderness, swelling, abrasion, laceration, ecchymosis, deformity, crepidus, dislocation, erythema Elbow exam: Present: normal inspection, full ROM. Absent: tenderness, swelling, abrasion, laceration, ecchymosis, deformity, crepidus, dislocation, erythema, effusion, pain w/ pronation/supination, tenderness over radial head Forearm Wrist exam: Present: normal inspection, full ROM, tenderness. Absent: swelling, abrasion, laceration, ecchymosis, deformity, crepidus, dislocation, erythema, tenderness over anatomical snuff box, pain with axial thumb loading Hand Wrist exam: Present: normal inspection, full ROM. Absent: tenderness, swelling, abrasion, laceration, ecchymosis, deformity, crepidus, dislocation, erythema, amputation, nail avulsion, subungual hematoma Vascular: Present: normal capillary refill. Absent: vascular compromise (Neurovascular within normal limits) - Back Exam Back exam: Present: normal inspection, full ROM, paraspinal tenderness (Cervical paraspinal). Absent: tenderness, CVA tenderness (R), CVA tenderness (L), muscle spasm, vertebral tenderness, rash noted - Neurological Exam Neurological exam: Present: alert, oriented X3, normal gait - Expanded Neurological Exam Expanded Patient oriented to: Present: person, place, time Cranial nerves: EOM's Intact: Normal, Facial Sensation: Normal Cerebellar function: Finger to Nose: Normal Upper motor neuron: Pronator Drift: Normal, Sensory Extinction: Normal Motor strength exam: RUE: 5, LUE: 5, RLE: 5, LLE: 5 Best Eye Response ([place]): (4) open spontaneously Best Motor Response ([place]): (6) obeys commands Best Verbal Response ([place]): (5) oriented [place] Total: 15 - Psychiatric Psychiatric exam: Present: normal affect, normal mood - Skin Skin exam: Present: warm, dry, intact, normal color. Absent: rash ED Course Vital Signs 06/18/20 16:18 Temperature 98.6 F Pulse Rate 72 Respiratory 18 Rate Blood Pressure 146/73 O2 Sat by Pulse 97 Oximetry - Reevaluation(s) Reevaluation #1: 06/18/20 19:56 Patient is speaking in full sentences with no signs of distress noted. ED Medical Decision Making - Radiology Data [facility] [address] [place] [address] XRay Report Signed Patient: RED SANTIZO MR#: [id number] : 1945 Acct:[id number] Age/Sex: 75 / F ADM Date: 06/18/20 Loc: ED Attending Dr: Ordering Physician: MARLEY LAKE Date of Service: 06/18/20 Procedure(s): XR wrist 2V RT Accession Number(s): [id number] cc: MARLEY LAKE Fluoro Time In Minutes: RIGHT SHOULDER 2 VIEWS RIGHT ELBOW 2 VIEWS RIGHT WRIST 2 VIEWS INDICATION: Right upper extremity pain after fall. COMPARISON: No priors. FINDINGS: Right shoulder: No acute, displaced fracture or dislocation is seen. Mild degenerative changes are noted. Right elbow: Positioning is suboptimal. Accounting for this, no acute displaced fracture or dislocation is seen. No definite joint effusion. Right wrist: There is a mildly impacted/displaced intra-articular distal radius fracture with transverse and longitudinal components. There is slight dorsal angulation of the distal fracture fragment. No significant cortical offset is seen at the articular surface. No associated ulnar styloid fracture is seen. There is significant soft tissue swelling about the right wrist. No carpal fracture is seen. IMPRESSION: 1. Comminuted mildly displaced/impacted distal radius fracture as above. 2. No acute traumatic findings at the right elbow or right shoulder. Signer Name: Berny Samuel MD Signed: 06/18/2020 5:46 PM Workstation Name: [id number] Transcribed By: LEONARD Dictated By: Berny Samuel MD Electronically Authenticated By: Berny Samuel MD Signed Date/Time: 06/18/201745 DD/ 42 TD/TT: [facility] [address] [place] [address] Cat Scan Report Signed Patient: RED SANTIZO MR#: [id number] : 1945 Acct:[id number] Age/Sex: 75 / F ADM Date: 06/18/20 Loc: ED Attending Dr: Ordering Physician: MARLEY LAKE Date of Service: 06/18/20 Procedure(s): CT cervical spine wo con Accession Number(s): [id number] cc: MARLEY LAKE CT cervical spine wo con, CT head/brain wo con INDICATION: Trauma. TECHNIQUE: CT head and cervical spine without contrast. All CT scans at this location are performed using CT dose reduction for ALARA by means of automated exposure control. COMPARISON: None. FINDINGS: HEAD: Intracranial:Postoperative changes from prior right aneurysmal clipping with associated right frontal encephalomalacia. No evidence for acute territorial infarction. No intracranial hemorrhage. No extra axial collection.. No hydrocephalus. No herniation. Sinuses: Paranasal sinuses and mastoid air cells are essentially clear. Orbits: Globes are intact Calvarium: No acute fracture. CERVICAL: Alignment: Normal alignment. Vertebrae: No fracture. Vertebral body heights are preserved. C1 and C2 are congruent. Atlantooccipital joint is maintained. Spondylolysis: Mild spondylosis most also C5-C6. Soft tissues: No prevertebral soft tissue thickening. Additional findings: No significant additional findings. IMPRESSION: 1. No acute intracranial abnormality. 2.No cervical spine fracture. Signer Name: Marlon Allan MD Signed: 06/18/2020 5:29 PM Workstation Name: [id number] Transcribed By: SAYRA Dictated By: Marlon Allan MD Electronically Authenticated By: Marlon Allan MD Signed Date/Time: 06/18/201728 DD/ 23 TD/TT: - Medical Decision Making This is a 75-year-old female that presents with fall and left distal radius fracture. Patient is stable and was examined by me. I referred patient to an orthopedic doctor for further evaluation for possible MRI. X-ray has been obtained and dictated by the radiologist. Patient is notified of the x-ray report with noted by the patient. Patient does have normal gait/range of motion with no tenderness and no joint swelling. No ecchymosis. no joint redness or swelling. Not warm to touch. No signs of cellulites present. Patient received a [place] splint and shoulder sling to right arm. Post splint assessment: neurov asular intact; normal cap refill <2 second; normal sensation; denies decreaed sensation; normal ROM of digits. Patient was instructed to RICE therapy. Patient received [place] for pain which stated patient will have from member drive patient home after discharge due to possible drowsiness. Patient is discharged with naproxen. At time of discharge, the patient does not seem toxic or ill in appearance. No acute signs of distress noted. Patient agrees to discharge treatment plan of care. No further questions noted by the patient. Critical care attestation.: If time is entered above; I have spent that time in minutes in the direct care of this critically ill patient, excluding procedure time. ED Disposition Clinical Impression: Left radial fracture Qualifiers: Encounter type: initial encounter Radius location: distal Fracture type: closed Fracture morphology: unspecified fracture morphology Qualified Code(s): S52.502A - Unspecified fracture of the lower end of left radius, initial encounter for closed fracture Fall Qualifiers: Encounter type: initial encounter Qualified Code(s): W19.XXXA - Unspecified fall, initial encounter Sprain of cervical neck Qualifiers: Encounter type: initial encounter Qualified Code(s): S13.9XXA - Sprain of joints and ligaments of unspecified parts of neck, initial encounter Right shoulder strain Qualifiers: Encounter type: initial encounter Qualified Code(s): S46.911A - Strain of unspecified muscle, fascia and tendon at shoulder and upper arm level, right arm, initial encounter Strain of right elbow Qualifiers: Encounter type: initial encounter Qualified Code(s): S46.911A - Strain of unspecified muscle, fascia and tendon at shoulder and upper arm level, right arm, initial encounter Headache Qualifiers: Headache type: unspecified Headache chronicity pattern: acute headache Intractability: not intractable Qualified Code(s): R51.9 - Headache, unspecified Disposition: - TO HOME OR SELFCARE Is pt being admited?: No Does the pt Need Aspirin: No Condition: Stable Instructions: Cast or Splint Care, Adult, [id number], RICE Therapy for Routine Care of Injuries, [id number], Fall Prevention in the Home, Adult, [id number], Radial Fracture Additional Instructions: Follow-up with a orthopedic doctor in 3-5 days or if symptoms worsen and continue return to emergency room as soon as possible. Prescriptions: Naproxen 500 mg PO Q12H PRN #12 tablet PRN Reason: Pain , Severe (7-10) Referrals: HELEN TARIQ MD [Primary Care Provider] - 3-5 Days PRIMARY CAREMD [Referring] - 3-5 Days TYLER TELLEZ MD [Staff Physician] - 3-5 Days Time of Disposition: 21:28
== END 2020-06-18 21:35 | disposition home or self-care (01) ==
LOC: ED 16:15
DX: S52.501A Unspecified fracture of the lower end of right radius, initial encounter for closed fracture (principal); S13.4XXA Sprain of ligaments of cervical spine, initial encounter; R51.9 Headache, unspecified; I10 Essential (primary) hypertension; M19.91 Primary osteoarthritis, unspecified site; J44.9 Chronic obstructive pulmonary disease, unspecified; Z98.890 Other specified postprocedural states; Z79.899 Other long term (current) drug therapy; W01.0XXA Fall on same level from slipping, tripping and stumbling without subsequent striking against object, initial encounter; Y93.89 Activity, other specified; Y92.89 Other specified places as the place of occurrence of the external cause; Y99.8 Other external cause status
CPT/HCPCS: 70450; 72125

== ENCOUNTER 2020-07-10 14:47 | Outpatient (CLI) | payer MEDICARE ==
--- NOTE | 2020-07-10 16:55 | XRay Report ---
Left knee 3 views INDICATION: Left knee pain IMPRESSION: The subcutaneous soft tissues of the left knee appear edematous. There is prominent prepa tellar soft tissue edema. There is a small knee effusion. There is diffuse osteopenia. No fracture id entified. Signer Name: Joao Schaefer MD Signed: 07/10/2020 4:50 PM Workstation Name: [id number]
== END 2020-07-10 14:48 | disposition home or self-care (01) ==
LOC: XRAY 14:47
PROVIDERS: ATTEND Orthopaedic Surgery
DX: M25.462 Effusion, left knee (principal); M79.89 Other specified soft tissue disorders; M85.862 Other specified disorders of bone density and structure, left lower leg